=== PATIENT | female | born 1995 | race Caucasian/White ===

== ENCOUNTER 2019-02-14 05:38 | Emergency (ER) | payer OTHER ==
[~2019-02-14] VITALS: Ht 170.2 cm; Wt 65.0 kg
[2019-02-14 05:44] VITALS: Ht 170.2 cm; Wt 65.0 kg
[2019-02-14 06:48] LABS: BASOPHIL % 0.9 % (0-2); PLATELET COUNT 272 x10^3mcL (130-400)
[2019-02-14 07:19] LABS: CALCIUM 8.9 mg/dL (8.5-10.1); CARBON DIOXIDE 27.6 mmol/L (21-32); CHLORIDE SERUM 106 mmol/L (98-107); CREATININE SERUM 0.8 mg/dL (0.6-1.0); GFR1 > 60 mL/min; GLUCOSE SERUM 101 mg/dL (74-106); POTASSIUM SERUM 4.5 mmol/L (3.5-5.1); SODIUM SERUM 142 mmol/L (136-145)
[2019-02-14 07:23] LABS: ALBUMIN 3.9 g/dL (3.4-5.0); ALKALINE PHOSPHATASE 65 U/L (46-116); ALT/SGPT 40 U/L (14-59); AMYLASE 125 U/L (25-115); AST/SGOT 21 U/L (15-37); BILIRUBIN TOTAL 0.6 mg/dL (0.20-1.00); LIPASE 173 IU/L (73-393); TOTAL PROTEIN, SERUM 7.5 g/dL (6.4-8.2)
[2019-02-14 07:58] VITALS: BP 125/92
== END 2019-02-14 07:58 | disposition home or self-care (01) ==
LOC: ED 05:38
PROVIDERS: Emergency Medicine
DX: K20.9 Esophagitis, unspecified (principal); K21.9 Gastro-esophageal reflux disease without esophagitis; Z88.0 Allergy status to penicillin
CPT/HCPCS: 36415; J1885

== ENCOUNTER 2019-02-14 14:39 | Inpatient (IN) | payer OTHER ==
[~2019-02-14] VITALS: Ht 170.2 cm; Wt 56.7 kg
--- NOTE | 2019-02-14 16:17 | NUR ---
REC'D A 23/F IN H1 WITH C/P INTERRMITTENT EPIGASTRIC PAIN WITH CP X 2 MONTHS PT RECENTLY DX WITH H. PYLORI AND TREATED WITH FLAGYL, CLINDAMYCIN AND OMPERAZOLE. PT SEEN HERE EARLIER THIS AM FOR SIMILAR SYMPTOMS AND REPORTS SYMPTOMS HAVE WORSEN. PT AAOX4, CLEAR SPEECH, RESP E/U, IN NO ACUTE DISTRESS. MOTHER AT BEDSIDE.
--- NOTE | 2019-02-14 16:19 | NUR ---
PT REPORTS PAIN DECREASED S/P GI COCKTAIL.
[2019-02-14 16:27] LABS: BASOPHIL % 0.2 % (0-2); PLATELET COUNT 329 x10^3mcL (130-400); RED CELL DISTRIBUTION WIDTH 12.9 % (11.5-14.5)
--- NOTE | 2019-02-14 16:31 | NUR ---
REPORT GIVEN TO CLAUDETTE GARCIA TO ASSUME CARE OF THE PT.
--- NOTE | 2019-02-14 16:36 | NUR ---
MEDICATED PT FOR PAIN. PLEASE SEE EMAR.
[2019-02-14 16:37] LABS: CALCIUM 8.7 mg/dL (8.5-10.1); CARBON DIOXIDE 27.5 mmol/L (21-32); CHLORIDE SERUM 105 mmol/L (98-107); CREATININE SERUM 0.8 mg/dL (0.6-1.0); GFR1 > 60 mL/min; GLUCOSE SERUM 94 mg/dL (74-106); POTASSIUM SERUM 3.7 mmol/L (3.5-5.1); SODIUM SERUM 142 mmol/L (136-145)
[2019-02-14 16:41] LABS: ALBUMIN 4.2 g/dL (3.4-5.0); ALKALINE PHOSPHATASE 71 U/L (46-116); ALT/SGPT 41 U/L (14-59); AMYLASE 143 U/L (25-115); AST/SGOT 25 U/L (15-37); BILIRUBIN TOTAL 0.5 mg/dL (0.20-1.00); LIPASE 183 IU/L (73-393)
--- NOTE | 2019-02-14 16:53 | NUR ---
RECEIVED PT FROM ED VIA SLIM, CAME IN DUE TO WORSENING ABDOMINAL PAIN X2 MONTHS. AAOX4. DENIES HEADACHE/DIZZINESS. ABLE TO SPEAK IN FULL SENTENCES. C/O 5/10 THROAT PAIN DESCRIBED THROBBING. NO SOB NOTED, LUNG SOUNDS CTA. DENIES CHEST PAIN/PRESSURE. DENIES ABDOMINAL PAIN/NAUSEA/VOMITING AT THIS TIME. HAD X1 DIARRHEAL EPISODE TODAY. VOIDS. IV SITE PATENT AND INTACT. SIDE RAILS UPX2. CALL LIGHT ON REACH. ENDORSED TO PRIMARY NURSE RADHA FOR CONTINUITY OF CARE
[2019-02-14 16:58] VITALS: BP 137/102
[2019-02-14 17:02] VITALS: Ht 170.2 cm; Wt 56.7 kg
--- NOTE | 2019-02-14 18:13 | NUR ---
PT SITTING UP IN BED. NO ACUTE RESP DISTRESS NOTED ON RA. PT C/O EPIGASTRIC PAIN 5/10 BURNING. PT STATES "IT WAS TOLERABLE WHEN I CAME UP BUT IT HAS NOT CHANGED AND I'M WORRIED IT WILL GET WORSE." MEDICATED PER EMAR. IV FLUIDS INFUSING ORDERED. FLUSHED WELL. NO REDNESS OR SWELLING NOTED. PT ASKING IF IT IS OKAY TO DRINK WATER. PAGED. DR. JORDAN, AWAITING CALL BACK. ORDER FOR DIET RECEIVED CALLED KITCHEN WILL BRING UP A LATE TRAY. WILL CONTINUE TO MONITOR. CALL LIGHT IN REACH. BED IN LOWEST POSITION.
--- NOTE | 2019-02-14 18:58 | NUR ---
BEDSIDE REPORT GIVEN TO TWYLA WILKINS. ALL QUESTIONS AND CONCERNS ADDRESSED. NO PROBLEMS ENCOUNTERED.
[2019-02-14 19:15] VITALS: BP 124/70
--- NOTE | 2019-02-14 19:15 | NUR ---
RECEIVED PT AWAKE ALERT AND VERBALLY RESPONSIVE.JUST HAVE DINNER AND TOLERATED WELL.NO N/V NOTED.C/O 4/10 ABDOMINAL PAIN TO SHARP/BURNING PAIN.EPISODE OF DIARRHEA THIS AM.BP 124/70 MMHG,HR 71.NPO AFTER MIDNIGHT AND VERBALIZED UNDERSTANDING.WILL CONTINUE TO MONITOR.
[2019-02-14 19:53] LABS: microscopic required? NO
[2019-02-14 20:03] LABS: urine erythrocyte NEGATIVE (NEGATIVE)
[2019-02-14 20:20] LABS: AMPHETAMINE QUAL UR NONE DETECTED (See below)
--- NOTE | 2019-02-14 20:34 | NUR ---
DR. MCGEE MADE AWARE THAT BIAXIN AND FLAGYL PO ATB RESUMED AND PER PHARMACY MAY CAUSE QT PROLONGATION.PT MED/SURG AT THIS TIME. VERBALIZED "IT'S OK".
--- NOTE | 2019-02-15 04:38 | NUR ---
PT SLEPT WITH INTERVALS.MEDICATED WITH MORPHINE 2 MG IVP X1 FOR ABDOMINAL PAIN WITH GOOD RELIEF.ZOFRAN 4 MG IVP X1 FOR NAUSEA WITH GOOD RESULT.NO ASE NOTED FROM BIAXIN AND FLAGYL PO ATB.NPO AT THIS TIME.ALL NEEDS MET.WILL CONTINUE TO MONITOR.
[2019-02-15 04:46] VITALS: BP 106/58
[2019-02-15 06:47] LABS: BASOPHIL % 0.6 % (0-2); PLATELET COUNT 234 x10^3mcL (130-400); RED CELL DISTRIBUTION WIDTH 13.4 % (11.5-14.5)
[2019-02-15 07:07] LABS: CALCIUM 8.3 mg/dL (8.5-10.1); CARBON DIOXIDE 26.9 mmol/L (21-32); CHLORIDE SERUM 107 mmol/L (98-107); CREATININE SERUM 0.7 mg/dL (0.6-1.0); GFR1 > 60 mL/min; GLUCOSE SERUM 84 mg/dL (74-106); MAGNESIUM 1.9 mg/dL (1.8-2.4); POTASSIUM SERUM 4.5 mmol/L (3.5-5.1); SODIUM SERUM 142 mmol/L (136-145)
--- NOTE | 2019-02-15 07:50 | NUR ---
RECEIVED PATIENT FROM CLAUDETTE [place]. PATIENT IN BED AT THIS TIME COMPLAINING OF TAVERAS. LIKELY D/T NPO STATUS AND PRN MORPHINE. WILL ADMINISTER PRN TYLENOL, PATIENT AGREES. WILL AWAIT FOR [employer]EN FOOD SELECTOR TO ARRIVE AND SPEAK WITH PATIENT, ALSO WAIT FOR DR SANTAMARIA TO SPEAK WITH PATIENT.
[2019-02-15 09:26] VITALS: BP 126/98
--- NOTE | 2019-02-15 10:47 | NUR ---
DR SANTAMARIA IN TO SPEAK WITH PATIENT, ORDERED US ABDOMEN AND EGD FOR TODAY. PATIENT AGREES AND VERBALIZES UNDERSTANDING. WILL AWAIT FOR EGD TO BE COMPLETE, GI LAB IN TO TRANSPORT PATIENT.
--- NOTE | 2019-02-15 16:35 | NUR ---
PATIENT IN BED AT THIS TIME, TOLERATING LUNCH TRAY. NO COMPLAINTS OF PAIN OR NAUSEA. WILL CONTINUE TO MONITOR FOR DINNER TRAY. CALL LIGHT IN REACH AT THIS TIME.
[2019-02-15 16:51] VITALS: BP 109/68
--- NOTE | 2019-02-15 18:02 | NUR ---
PATIENT IN BED AT THIS TIME, NO COMPLAINTS OF ABDOMINAL PAIN. WILL ENDORSE TO ONCOMING NURSE. CALL LIGHT IN REACH AT THIS TIME.
--- NOTE | 2019-02-15 19:20 | NUR ---
RECEIVED PT LAYING IN BED WATCHING TV, NO ACUTE DISTRESS OBSERVED, DENIES PAIN OR DISCOMFORT AT THIS TIME. ABD ROUND AND SOFT, NONTENDER WITH ACTIVE BOWEL SOUNDS, REGULAR DIET, TOLERATING WELL, C/O INTERMITTENT N/V AND ABD PAIN, DENIES AT THIS TIME TIME. AA/OX4, ABLE TO MAKE NEEDS KNOWN, SPEECH CLEAR AND APPROPRIATE. MED-SURG, NO TELE, NO CP. PULSES PALPABLE AND EQUAL THROUGHOUT, NO EDEMA NOTED. BREATHING ON RA, EVEN AND UNLABORED, NO SOB OR DYSPNEA OBSERVED. VOIDS URINE FREELY WITH BRP. AMBULATORY AND ABLE TO REPOSITION SELF IN BED. IV TO LAC DRY, PATENT, INTACT, AND INFUSING IVF WELL, NO S&S PHLEBITIS OR INFILTRATION NOTED. COMFORT AND SAFETY MEASURES IN PLACE. ALL NEEDS ASSESSED AND ATTENDED TO. CALL LIGHT WITHIN REACH. WILL CONTINUE TO MONITOR
[2019-02-15 20:46] VITALS: BP 102/61
--- NOTE | 2019-02-16 05:33 | NUR ---
NO SIGNIFICANT CHANGES TO REPORT, PT COMPLIED WITH NURSING CARE TRHOUGHOUT THE SHIFT WITH NO ACUTE EVENTS OVERNIGHT. NO ACUTE DISTRESS OBSERVED AT THIS TIME. PT LAYING IN BED, BREATHING EVEN AND UNLABORED. COMFORT AND SAFETY MEASURES MAINTAINED. ALL NEEDS ASSESSED AND ATTENDED TO. CALL LIGHT WITHIN REACH. WILL CONTINUE TO MONITOR AND ENDORSE CARE TO DAY SHIFT NURSE.
[2019-02-16 05:49] VITALS: BP 100/60
[2019-02-16 06:24] LABS: BASOPHIL % 0.5 % (0-2); PLATELET COUNT 241 x10^3mcL (130-400); RED CELL DISTRIBUTION WIDTH 13.1 % (11.5-14.5)
[2019-02-16 06:43] LABS: CALCIUM 8.4 mg/dL (8.5-10.1); CARBON DIOXIDE 25.9 mmol/L (21-32); CHLORIDE SERUM 104 mmol/L (98-107); CREATININE SERUM 0.7 mg/dL (0.6-1.0); GFR1 > 60 mL/min; GLUCOSE SERUM 84 mg/dL (74-106); POTASSIUM SERUM 3.9 mmol/L (3.5-5.1); SODIUM SERUM 140 mmol/L (136-145)
--- NOTE | 2019-02-16 07:35 | NUR ---
RECEIVED PT FROM EPIC WILLOW ANALYST. ASSESSED AND DOCUMENTED. C/O MIGRAINE HEADACHE, 10/08. PT RECEIVED TYLENOL PO AT [phone], PT SAID SHE WILL WAIT LITTILE LONGER AND SEE IF PAIN GO AWAY OR NOT. SAFTEY PRECAUTIONS ARE IN PLACE. RELAXATION TECH PROVIDED AND GAVE COMFORTABLE POSITION. WILL MONITOR. STABLE.
[2019-02-16 09:06] VITALS: BP 115/73
--- NOTE | 2019-02-16 10:02 | NUR ---
PT C/O MIGRAINE HEADACHE,11/08. INFORMED DIE SETTER JUAN AND RECEIVED ORDER FOR IMITREX PO AND GIVEN. GAVE COMFORTABLE POSITION. WILL REASSESS.
--- NOTE | 2019-02-16 11:02 | NUR ---
PT IS SLEEPING THIS TIME. NO SIGNS OF HEADACHE THIS TIME.
[2019-02-16] MEDS ORDERED: PEPCID20 MG PO (12:56)
[2019-02-16 13:25] VITALS: BP 115/73
--- NOTE | 2019-02-16 14:10 | NUR ---
PT IS STABLE. DENIES ANY PAIN. DISCHARGE INSTRUCTIONS AND PRESCRIPTIO GIVEN. PB SIGNED AND SENT WITH PT. IV REMOVED AND DRESSING APPLIED. PT'S GRANDMOTHER AT BEDSIDE. RASPBERRY CHECKER WHEELED PT DOWN TO LOBBY ACCOMAPNIED WITH GRANDMOTHER. PT DC HOME.
== END 2019-02-16 14:11 | disposition home or self-care (01) | DRG 241 ==
LOC: ED 14:39 → MU 16:08
PROVIDERS: Emergency Medicine; Internal Medicine Gastroenterology; ADMIT Internal Medicine
PROC: 0DB78ZX Excision of Stomach, Pylorus, Via Natural or Artificial Opening Endoscopic, Diagnostic (ICD-10-PCS; principal; 2019-02-15 10:45)
DX: K29.70 Gastritis, unspecified, without bleeding (principal); F12.10 Cannabis abuse, uncomplicated; K21.9 Gastro-esophageal reflux disease without esophagitis; F41.0 Panic disorder [episodic paroxysmal anxiety]; Z87.891 Personal history of nicotine dependence; Z68.1 Body mass index [BMI] 19.9 or less, adult; Z88.0 Allergy status to penicillin; F32.9 Major depressive disorder, single episode, unspecified; F41.9 Anxiety disorder, unspecified
CPT/HCPCS: 43235; G0378; J1200; J1610; J2250; J2270; J2310; J2405; J3010; J3490; J7030; J8597; Q0092

== ENCOUNTER 2019-06-12 03:22 | Emergency (ER) | payer OTHER ==
[~2019-06-12] VITALS: Ht 170.2 cm; Wt 64.4 kg
[~2019-06-12 03:22] MED LIST: PEPCID20 MG PO
[2019-06-12 03:31] VITALS: Ht 170.2 cm; Wt 64.4 kg
[2019-06-12 05:44] LABS: BASOPHIL % 0.4 % (0-2); PLATELET COUNT 392 x10^3mcL (130-400); RED CELL DISTRIBUTION WIDTH 12.7 % (11.5-14.5)
[2019-06-12 05:56] LABS: CHLORIDE SERUM 104 mmol/L (98-107); CREATININE SERUM 0.7 mg/dL (0.6-1.0); GFR1 > 60 mL/min; GLUCOSE SERUM 104 mg/dL (74-106); POTASSIUM SERUM 3.6 mmol/L (3.5-5.1); SODIUM SERUM 141 mmol/L (136-145)
[2019-06-12 06:01] LABS: ALBUMIN 4.1 g/dL (3.4-5.0); ALKALINE PHOSPHATASE 81 U/L (46-116); ALT/SGPT 19 U/L (14-59); AST/SGOT 16 U/L (15-37); BILIRUBIN TOTAL 0.35 mg/dL (0.20-1.00); LIPASE 152 IU/L (73-393)
[2019-06-12 06:12] LABS: TOTAL PROTEIN, SERUM 8.5 g/dL (6.4-8.2)
[2019-06-12 08:19] VITALS: BP 105/60
== END 2019-06-12 08:09 | disposition home or self-care (01) ==
LOC: ED 03:22
PROVIDERS: Emergency Medicine
DX: K29.70 Gastritis, unspecified, without bleeding (principal); K21.9 Gastro-esophageal reflux disease without esophagitis; Z88.0 Allergy status to penicillin
CPT/HCPCS: C9113; J2405; J7030